=== PATIENT | female | born 1945 | race Caucasian/White ===

== ENCOUNTER → 2022-01-20 14:52 | Outpatient (CLI) | payer MEDICARE, OTHER, SELFPAY ==
--- NOTE | ~2022-01-20 | XR_ITS ---
XR hip RT min 2V DATE: 01/20/2022 15:23 INDICATION: Right hip pain. No injury. TECHNIQUE: AP and lateral views of right hip COMPARISON: None FINDINGS: There is osteopenia. Prominent degenerative disc disease at L3-4, L4-5 and L5-S1. There is dextroscoliosis of the lumbar s pine. There is degenerative change at the pubic symphysis. The sacroiliac joints are intact. There is moderately severe right hip osteoarthritis including joint space narrowing and spurring. No fracture or dislocation, avascular necrosis or bone destruction of the right hip is detected. 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
--- NOTE | ~2022-01-20 | XR_ITS ---
XR lumbar spine min 4V DATE: 01/20/2022 15:23 INDICATION: Low back pain. No injury. TECHNIQUE: AP, lateral, bilateral oblique views, coned lateral lumbosacral view COMPARISON: None FINDINGS: Diffuse osteopenia. There is approximately 25 degrees rotatory dextroscoliosis of the lumbar spine. There is severe degenerative disc disease throughout the lumbar and lumbosacral area. No fracture or bone destruction is detected. The lumbar pedicles are intact. No spondylolisthesis. The sacroiliac joints are intact. Bilateral hip osteophytes, more prominent on the right. Prominent amount of fecal material in the colon. IMPRESSION: Osteopenia Multi-level severe degenerative disc disease Rotatory dextroscoliosis of the lumbar spine Reviewed, dictated and finalized at location A.
== END ==
DX: M41.9 Scoliosis, unspecified (principal); M19.90 Unspecified osteoarthritis, unspecified site; M47.816 Spondylosis without myelopathy or radiculopathy, lumbar region; M16.11 Unilateral primary osteoarthritis, right hip
CPT/HCPCS: 72110; 73502